=== PATIENT | male | born 1975 ===

== ENCOUNTER 2021-09-24 19:50 | Emergency (ER) | payer SELFPAY ==
[2021-09-24 21:51] LABS: ACETAMINOPHEN 0 ug/mL (10-30)
== END 2021-09-25 01:13 | disposition home or self-care (01) ==
LOC: JD.ED 19:50
DX: F32.A Depression, unspecified (principal); R53.83 Other fatigue; R63.4 Abnormal weight loss; Z68.1 Body mass index [BMI] 19.9 or less, adult
CPT/HCPCS: 36415; 70450; 70450-26; 80053; 80143; 80179; 80307; 82607; 83690; 84484; 85025; 87476; 93005; 93010; 99285; 99285-25

== ENCOUNTER 2021-09-28 06:20 | Emergency (ER) | payer SELFPAY ==
[2021-09-28] MEDS ORDERED: LORazepam 2 MG/ML SDV IVPUSH ONE (07:17)
[2021-09-28] MEDS ORDERED: Lactated Ringers 1,000 ML IV ONE (07:22)
== END 2021-09-28 09:35 | disposition home or self-care (01) ==
LOC: JD.ED 06:20
DX: F32.A Depression, unspecified (principal); F20.2 Catatonic schizophrenia; R53.83 Other fatigue
CPT/HCPCS: 36415; 80053; 80307; 85025; 96374; 99284; 99284-25; J2060; J7120